=== PATIENT | male | born 1970 | race Caucasian/White ===

== ENCOUNTER 2018-10-08 16:28 | Observation (INO) | payer BC ==
[2018-10-08] MEDS ORDERED: Nitroglycerin 0.4 MG Tab.SL ONE (16:46)
[2018-10-08] MEDS ORDERED: Aspirin 81 MG Tab.Chew ONE (16:46)
[2018-10-08] MEDS ORDERED: Morphine 2 MG/ML Syringe IVPUSH ONE (17:03)
--- NOTE | 2018-10-08 17:03 | EDM.PDOC ---
ED HPI GENERAL MEDICAL PROBLEM - General Chief Complaint: Chest Pain Stated Complaint: chest pain Time Seen by Provider: 10/08/18 16:45 Source of Information: Reports: Patient History Limitations: Reports: No Limitations - History of Present Illness INITIAL COMMENTS - FREE TEXT/NARRATIVE: Patient is a 48-year-old gentleman who came into the ER with chief complaint of chest pain radiating in between the shoulder stating that is about 8 out of 10 started 24 hours ago constant with no changes. Patient is a known smoker but does chew about 10 cans a week. Chest pain protocol was started nitroglycerin 1 given chest pain down to 6 Onset: Gradual Duration: Hour(s): (24) Location: Reports: Chest Quality: Reports: Pressure Severity: Severe Improves with: Reports: Medication (Nitroglycerin brought it from a 8 to a 6 was unable to obtain a second dose secondary to hypotension we went ahead and gave him some morphine and that brought in from 6-4), Other (Patient chest pain was 8 out of 10 given Nitrol 1 brought the chest pain down to a 6 but also brought down the blood pressure so a second nitroglycerin was not given we went ahead and gave morphine 1 mg and that brought the pain from 6to a4 pain more tolerable.) Associated Symptoms: Reports: Diaphoresis (Secondary to hypotension) Left Flank Pain Score (Numeric/FACES): 8 Left Chest Pain Score (Numeric/FACES): 1 - Related Data Allergies Allergy/AdvReac Type Severity Reaction Status Date / Time No Known Allergies Allergy Verified 10/08/18 16:35 Home Meds: Home Meds Cefprozil [Cefzil] 500 mg PO BID 10 Days #20 tab 10/10/18 [Rx] Ondansetron [Zofran ODT] 4 mg PO Q6H PRN 5 Days #20 tab.dis 10/10/18 [Rx] Pantoprazole Sodium [Protonix] 40 mg PO DAILY 30 Days #30 suspdr.pkt 10/10/18 [ Rx] ED ROS GENERAL - Review of Systems Review Of Systems: See Below Constitutional: Reports: No Symptoms HEENT: Reports: No Symptoms Respiratory: Reports: No Symptoms Cardiovascular: Reports: Chest Pain Endocrine: Reports: No Symptoms GI/Abdominal: Reports: No Symptoms : Reports: No Symptoms Musculoskeletal: Reports: No Symptoms Skin: Reports: No Symptoms Neurological: Reports: No Symptoms Psychiatric: Reports: No Symptoms, Anxiety Hematologic/Lymphatic: Reports: No Symptoms Immunologic: Reports: No Symptoms ED EXAM, GENERAL - Physical Exam Exam: See Below Exam Limited By: No Limitations General Appearance: Alert, WD/WN, No Apparent Distress, Obese Eye Exam: Bilateral Eye: EOMI, PERRL Ears: Normal External Exam, Normal Canal, Hearing Grossly Normal, Normal TMs Nose: Normal Inspection, Normal Mucosa, No Blood Throat/Mouth: Normal Inspection, Normal Lips, Normal Teeth, Normal Gums, Normal Oropharynx, Normal Voice, No Airway Compromise Head: Atraumatic, Normocephalic Neck: Normal Inspection, Supple, Non-Tender, Full Range of Motion Respiratory/Chest: Decreased Breath Sounds Cardiovascular: Normal Peripheral Pulses, Regular Rate, Rhythm, No Edema, No Gallop, No JVD, No Murmur, No Rub GI/Abdominal: Normal Bowel Sounds, Soft, Non-Tender, No Organomegaly, No Distention, No Abnormal Bruit, No Mass (Male) Exam: Deferred Rectal (Males) Exam: Deferred Back Exam: Normal Inspection, Full Range of Motion, NT Extremities: Normal Inspection, Normal Range of Motion, Non-Tender, Normal Capillary Refill, No Pedal Edema Neurological: Alert, Oriented, CN II-XII Intact, Normal Cognition, Normal Gait, Normal Reflexes, No Motor/Sensory Deficits Psychiatric: Anxious Skin Exam: Warm, Dry, Intact, Normal Color, No Rash Lymphatic: No Adenopathy Course - Vital Signs Last Recorded V/S: Last Vital Signs Temp 98.3 F 10/10/18 08:00 Pulse 74 10/10/18 08:00 Resp 18 10/10/18 08:00 BP 126/60 10/10/18 08:00 Pulse Ox 98 10/10/18 08:00 - Orders/Labs/Meds Orders: Medication Orders Enoxaparin Sodium (Lovenox) 40 mg SUBCUT Q12H [facility] Last Admin: 10/10/18 07:24 Dose: 40 mg Admin: 10/09/18 19:58 Dose: 40 mg Admin: 10/09/18 09:05 Dose: 40 mg Admin: 10/08/18 20:32 Dose: 40 mg Levofloxacin/Dextrose 750 mg/ (Premix) 150 mls @ 100 mls/hr IV Q24H [facility] Last Admin: 10/09/18 19:54 Dose: 100 mls/hr Infusion: 10/08/18 22:02 Dose: 100 mls/hr Admin: 10/08/18 20:32 Dose: 100 mls/hr Sodium Chloride (Normal Saline) 1,000 mls @ 100 mls/hr IV ASDIRECTED [facility] Last Admin: 10/10/18 03:42 Dose: 100 mls/hr Infusion: 10/10/18 03:21 Dose: 100 mls/hr Admin: 10/09/18 17:21 Dose: 100 mls/hr Infusion: 10/09/18 14:50 Dose: 100 mls/hr Admin: 10/09/18 04:50 Dose: 100 mls/hr Infusion: 10/09/18 04:50 Dose: 100 mls/hr Admin: 10/09/18 00:34 Dose: 100 mls/hr Ketorolac Tromethamine (Toradol) 30 mg IVPUSH Q6H PRN PRN Reason: Pain Stop: 10/14/18 19:10 Last Admin: 10/10/18 02:16 Dose: 30 mg Admin: 10/09/18 19:54 Dose: 30 mg Magnesium Oxide (Magnesium Oxide) 800 mg PO DAILY [facility] Last Admin: 10/10/18 07:24 Dose: 800 mg Morphine Sulfate (Morphine) 4 mg IVPUSH Q2H PRN PRN Reason: Pain (severe 7-10) Last Admin: 10/09/18 18:09 Dose: 4 mg Admin: 10/09/18 15:51 Dose: 4 mg Ondansetron HCl (Zofran) 4 mg IVPUSH Q6H PRN PRN Reason: Nausea/Vomiting Last Admin: 10/09/18 12:59 Dose: 4 mg Pantoprazole Sodium (Protonix Iv) 40 mg IVPUSH DAILY [facility] Last Admin: 10/10/18 07:24 Dose: 40 mg Admin: 10/09/18 13:03 Dose: 40 mg Sodium Chloride (Saline Flush) 10 ml FLUSH ASDIRECTED PRN PRN Reason: Keep Vein Open Last Admin: 10/10/18 02:17 Dose: 10 ml Admin: 10/09/18 19:55 Dose: 10 ml Admin: 10/09/18 18:10 Dose: 10 ml Admin: 10/09/18 09:09 Dose: 10 ml Admin: 10/08/18 17:04 Dose: 10 ml Tramadol HCl (Ultram) 50 mg PO Q6H PRN PRN Reason: Pain Last Admin: 10/10/18 02:17 Dose: 50 mg Admin: 10/09/18 19:58 Dose: 50 mg Labs: Laboratory Tests 10/08/18 10/08/18 10/08/18 Range/Units 16:37 16:37 16:38 WBC 11.4 H (4.0-10.2) K/uL RBC 5.14 (4.33-5.41) M/uL Hgb 16.0 (13.1-16.8) g/dL Hct 46.7 (39.0-49.0) % MCV 90.9 (84.0-98.0) fL MCH 31.1 (28.2-33.3) pg MCHC 34.3 (31.7-36.0) g/dL RDW 13.3 (11.2-14.1) % Plt Count 275 (150-350) K/uL MPV 9.80 (7.00-11.50) fL PT 10.5 (9.5-12.0) SEC INR 1.0 APTT 30.0 (21.0-31.3) SEC D-Dimer, Quantitative (0-400) ng/mL Sodium 138 (136-145) mmol/L Potassium 3.8 (3.5-5.1) mmol/L Chloride 98 (98-107) mmol/L Carbon Dioxide 25.7 (21.0-32.0) mmol/L BUN 9 (7-18) mg/dL Creatinine 0.86 (0.51-1.17) mg/dL Est Cr Clr Drug Dosing 89.87 mL/min Estimated GFR (MDRD) > 60 mL/min Glucose 114 H (74-106) mg/dL Lactic Acid (0.4-2.0) mmol/L Calcium 9.0 (8.5-10.1) mg/dL Magnesium 1.7 L (1.8-2.4) mg/dL Total Bilirubin 1.0 (0.2-1.0) mg/dL AST 23 (15-37) U/L ALT 38 (12-78) U/L Alkaline Phosphatase 88 (46-116) IU/L Creatine Kinase 146 (26-308) U/L Creatine Kinase Index 1.0 (0.0-2.5) % CK-MB (CK-2) 1.50 (0.00-3.60) ng/mL Troponin I 0.000 (0.000-0.056) ng/mL NT-Pro-B Natriuret Pep 65 (0-125) pg/mL Total Protein 8.4 H (6.4-8.2) g/dL Albumin 4.5 (3.4-5.0) g/dL TSH, Ultra Sensitive 0.639 (0.358-3.740) mIU/mL 10/08/18 10/08/18 Range/Units 16:38 16:38 WBC (4.0-10.2) K/uL RBC (4.33-5.41) M/uL Hgb (13.1-16.8) g/dL Hct (39.0-49.0) % MCV (84.0-98.0) fL MCH (28.2-33.3) pg MCHC (31.7-36.0) g/dL RDW (11.2-14.1) % Plt Count (150-350) K/uL MPV (7.00-11.50) fL PT (9.5-12.0) SEC INR APTT (21.0-31.3) SEC D-Dimer, Quantitative 200 (0-400) ng/mL Sodium (136-145) mmol/L Potassium (3.5-5.1) mmol/L Chloride (98-107) mmol/L Carbon Dioxide (21.0-32.0) mmol/L BUN (7-18) mg/dL Creatinine (0.51-1.17) mg/dL Est Cr Clr Drug Dosing mL/min Estimated GFR (MDRD) mL/min Glucose (74-106) mg/dL Lactic Acid 2.9 H (0.4-2.0) mmol/L Calcium (8.5-10.1) mg/dL Magnesium (1.8-2.4) mg/dL Total Bilirubin (0.2-1.0) mg/dL AST (15-37) U/L ALT (12-78) U/L Alkaline Phosphatase (46-116) IU/L Creatine Kinase (26-308) U/L Creatine Kinase Index (0.0-2.5) % CK-MB (CK-2) (0.00-3.60) ng/mL Troponin I (0.000-0.056) ng/mL NT-Pro-B Natriuret Pep (0-125) pg/mL Total Protein (6.4-8.2) g/dL Albumin (3.4-5.0) g/dL TSH, Ultra Sensitive (0.358-3.740) mIU/mL Meds: Medications Generic Name Dose Route Start Last Admin Trade Name Freq PRN Reason Stop Dose Admin Enoxaparin Sodium 40 mg 10/08/18 20:00 10/10/18 07:24 Lovenox SUBCUT 40 mg Q12H [facility] Administration Levofloxacin/Dextrose 750 mg/ 150 mls @ 100 mls/hr 10/08/18 20:30 10/09/18 19 :54 Premix IV 100 mls/hr Q24H [facility] Administration Sodium Chloride 1,000 mls @ 100 mls/hr 10/08/18 19:00 10/10/18 03:42 Normal Saline IV 100 mls/hr ASDIRECTED [facility] Administration Ketorolac Tromethamine 30 mg 10/09/18 19:10 10/10/18 02:16 Toradol IVPUSH 10/14/18 19:10 30 mg Q6H PRN Administration Pain Magnesium Oxide 800 mg 10/10/18 08:00 10/10/18 07:24 Magnesium Oxide PO 800 mg DAILY [facility] Administration Morphine Sulfate 4 mg 10/09/18 15:45 10/09/18 18:09 Morphine IVPUSH 4 mg Q2H PRN Administration Pain (severe 7-10) Ondansetron HCl 4 mg 10/09/18 12:30 10/09/18 12:59 Zofran IVPUSH 4 mg Q6H PRN Administration Nausea/Vomiting Pantoprazole Sodium 40 mg 10/09/18 12:30 10/10/18 07:24 Protonix Iv IVPUSH 40 mg DAILY [facility] Administration Sodium Chloride 10 ml 10/08/18 16:37 10/10/18 02:17 Saline Flush FLUSH 10 ml ASDIRECTED PRN Administration Keep Vein Open Tramadol HCl 50 mg 10/09/18 19:11 10/10/18 02:17 Ultram PO 50 mg Q6H PRN Administration Pain Discontinued Medications Generic Name Dose Route Start Last Admin Trade Name Freq PRN Reason Stop Dose Admin Aspirin Confirm 10/08/18 16:46 10/08/18 17:01 Aspirin Administered 10/08/18 16:47 324 mg Dose Administration 324 mg .ROUTE .STK-MED ONE Fentanyl 100 mcg 10/09/18 12:25 10/09/18 13:10 Sublimaze IVPUSH 10/09/18 12:26 100 mcg ONETIME ONE Administration Sodium Chloride 1,000 mls @ 250 mls/hr 10/08/18 17:15 10/08/18 17:07 Normal Saline IV 250 mls/hr ASDIRECTED [facility] Administration Influenza Virus Vaccine 60 mcg 10/08/18 17:45 10/09/18 09:46 Fluzone Quad [id number] Syringe IM 10/08/18 17:46 Not Given .ONCE ONE Iopamidol 100 ml 10/09/18 14:00 10/09/18 15:12 Isovue-300 (61%) IVPUSH 10/09/18 14:01 Not Given ONETIME ONE Magnesium Sulfate/Dextrose 1 gm 10/09/18 16:00 10/09/18 15:25 Magnesium 1 Gm In D5w 100 Ml IV 10/09/18 16:01 1 gm ONETIME ONE Administration Morphine Sulfate 1 mg 10/08/18 17:03 10/08/18 17:05 Morphine IVPUSH 10/08/18 17:04 1 mg ONETIME ONE Administration Morphine Sulfate Confirm 10/08/18 17:04 10/08/18 17:07 Morphine Administered 10/08/18 17:05 Not Given Dose 2 mg .ROUTE .STK-MED ONE Morphine Sulfate 2 mg 10/08/18 20:17 10/09/18 09:07 Morphine IVPUSH 2 mg Q4H PRN Administration Chest Pain Morphine Sulfate 2 mg 10/09/18 12:30 Morphine IVPUSH Q2H PRN Chest Pain Nitroglycerin Confirm 10/08/18 16:46 10/08/18 17:01 Nitrostat Administered 10/08/18 16:47 0.4 mg Dose Administration 0.4 mg .ROUTE .STK-MED ONE Sucralfate 1 gm 10/08/18 21:23 10/08/18 21:31 Carafate PO 10/08/18 21:24 1 gm ONETIME ONE Administration Departure - Departure Time of Disposition: 17:30 Disposition: Refer to Observation Clinical Impression: Chest pain - Problem List & Annotations (1) Pneumonia SNOMED Code(s): 483606066 Code(s): J18.9 - PNEUMONIA, UNSPECIFIED ORGANISM Status: Acute Priority: High Current Visit: Yes Annotation/Comment:: Repeat chest x-ray check CBC. Qualifiers: Pneumonia type: due to unspecified organism (2) Non-cardiac chest pain SNOMED Code(s): 720265476 Code(s): R07.89 - OTHER CHEST PAIN Status: Acute Priority: High Current Visit: Yes Annotation/Comment:: Pain control much better with Toradol (3) Hypothyroid SNOMED Code(s): 27453642 Code(s): E03.9 - HYPOTHYROIDISM, UNSPECIFIED Status: Acute Current Visit : Yes Annotation/Comment:: TSH at 0.639 will check T4 Qualifiers: Hypothyroidism type: unspecified Qualified Code(s): E03.9 - Hypothyroidism , unspecified - Problem List Review Problem List Initiated/Reviewed/Updated: Yes - Assessment/Plan Admission H&P: Please use this note as an admission H&P Assessment:: Patient will be admitted to rule out OK start antibiotics and check thyroids Plan: Patient stable for observation status
[2018-10-08] MEDS ORDERED: Morphine 2 MG/ML Syringe ONE (17:04)
[2018-10-08] MEDS: Sodium Chloride 0.9% 10 ML Syringe FLUSH PRN (17:04)
[2018-10-08 17:06] LABS: CHLORIDE,CL 98 mmol/L (98-107); SODIUM,NA 138 mmol/L (136-145)
[2018-10-08] MEDS ORDERED: Sodium Chloride 0.9% 1,000 ML IV SCH (17:15)
[2018-10-08] MEDS: Morphine 2 MG/ML Syringe IVPUSH PRN (20:29)
[2018-10-08] MEDS: Levofloxacin/Dextrose 5%-Water 750 MG in Premix Bag 1 BAG IV SCH (20:32)
[2018-10-08] MEDS: Enoxaparin 40 MG/0.4 ML Syringe SUBCUT SCH (20:32)
[2018-10-08] MEDS ORDERED: Sucralfate Suspension 1 GM/10 ML Cup PO ONE (21:23)
[2018-10-09] MEDS: Morphine 2 MG/ML Syringe IVPUSH PRN ×5 (00:31→18:09)
[2018-10-09] MEDS: Sodium Chloride 0.9% 1,000 ML IV SCH ×3 (00:34→17:21)
[2018-10-09 07:27] LABS: CHLORIDE,CL 102 mmol/L (98-107); SODIUM,NA 138 mmol/L (136-145)
[2018-10-09] MEDS: Enoxaparin 40 MG/0.4 ML Syringe SUBCUT SCH ×2 (09:05→19:58)
[2018-10-09] MEDS: Sodium Chloride 0.9% 10 ML Syringe FLUSH PRN ×3 (09:09→19:55)
[2018-10-09] MEDS ORDERED: fentaNYL 100 MCG/2 ML SDV IVPUSH ONE (12:25)
[2018-10-09] MEDS ORDERED: Ondansetron 4 MG/2 ML SDV IVPUSH PRN (12:30)
[2018-10-09] MEDS ORDERED: Morphine 2 MG/ML Syringe IVPUSH PRN (12:30)
--- NOTE | 2018-10-09 12:37 | PCM.PN ---
- General Info Date of Service: 10/09/18 Admission Dx/Problem (Free Text): History of left chest/upper abdominal pain. Radiates around left side and to left mid back/shoulder blade area. Noted to have left lower lung infiltrate during ER evaluation. Admitted to observation for serial troponins/telemetry for cardiac rule out in addition to having antibiotics initiated to treat suspected pneumonia. Subjective Update: Patient is not feeling any better. Uncomfortable all night, unable to sleep. MS Q4hr helped but did not completely alleviate pain. Pain is worse with movement, laying down flat, taking a deep breath, as well as when he eats/ drinks. Patient says that he feels like he needs to burp/abdomen feels full. Has history of kidney stone in past. Denies history of GERD/heartburn/GI pathology. Has not had any fevers/chills. Unable to eat or drink much over the last few days. Has not had much PO intake since admission. Functional Status: Reports: Ambulating, Urinating. Denies: New Symptoms - Review of Systems General: Reports: Appetite (poor). Denies: Fever, Weakness, Fatigue, Chills, Night Sweats HEENT: Reports: No Symptoms Pulmonary: Reports: Pleuritic Chest Pain. Denies: Cough, Sputum, Hemoptysis, Wheezing Cardiovascular: Reports: Chest Pain. Denies: Palpitations, Dyspnea on Exertion , Orthopnea, Edema, Lightheadedness Gastrointestinal: Reports: Abdominal Pain (left upper quadrant), Decreased Appetite, Nausea. Denies: Constipation, Diarrhea, Difficulty Swallowing, Flatus , Hematochezia, Vomiting Genitourinary: Reports: No Symptoms Musculoskeletal: Reports: Back Pain (pain at times radiates towards shoulder blade on left, left mid back.) Skin: Reports: No Symptoms Neurological: Reports: No Symptoms Psychiatric: Reports: No Symptoms - Patient Data Vitals - Most Recent: Last Vital Signs Temp 36.6 C 10/09/18 11:21 Pulse 78 10/09/18 11:21 Resp 17 10/09/18 11:21 BP 130/79 10/09/18 11:21 Pulse Ox 98 10/09/18 11:21 Weight - Most Recent: 106.623 kg I&O - Last 24 Hours: Intake & Output 10/08/18 10/09/18 10/09/18 22:59 06:59 14:59 Intake Total 250 1666 Balance 250 1666 Lab Results Last 24 Hours: Laboratory Results - last 24 hr 10/08/18 10/08/18 10/08/18 Range/Units 16:37 16:37 16:38 WBC 11.4 H (4.0-10.2) K/uL RBC 5.14 (4.33-5.41) M/uL Hgb 16.0 (13.1-16.8) g/dL Hct 46.7 (39.0-49.0) % MCV 90.9 (84.0-98.0) fL MCH 31.1 (28.2-33.3) pg MCHC 34.3 (31.7-36.0) g/dL RDW 13.3 (11.2-14.1) % Plt Count 275 (150-350) K/uL MPV 9.80 (7.00-11.50) fL Neut % (Auto) (45.0-80.0) % Lymph % (Auto) (10.0-50.0) % [place] % (Auto) (2.0-14.0) % Eos % (Auto) (0.0-5.0) % Baso % (Auto) (0.0-2.0) % Neut # (Auto) (1.40-7.00) K/uL Lymph # (Auto) (0.50-3.50) K/uL [place] # (Auto) (0.00-1.00) K/uL Eos # (Auto) (0.00-0.50) K/uL Baso # (Auto) (0.00-0.20) K/uL PT 10.5 (9.5-12.0) SEC INR 1.0 APTT 30.0 (21.0-31.3) SEC D-Dimer, Quantitative (0-400) ng/mL Sodium 138 (136-145) mmol/L Potassium 3.8 (3.5-5.1) mmol/L Chloride 98 (98-107) mmol/L Carbon Dioxide 25.7 (21.0-32.0) mmol/L BUN 9 (7-18) mg/dL Creatinine 0.86 (0.51-1.17) mg/dL Est Cr Clr Drug Dosing 89.87 mL/min Estimated GFR (MDRD) > 60 mL/min Glucose 114 H (74-106) mg/dL Lactic Acid (0.4-2.0) mmol/L Calcium 9.0 (8.5-10.1) mg/dL Magnesium 1.7 L (1.8-2.4) mg/dL Total Bilirubin 1.0 (0.2-1.0) mg/dL AST 23 (15-37) U/L ALT 38 (12-78) U/L Alkaline Phosphatase 88 (46-116) IU/L Creatine Kinase 146 (26-308) U/L Creatine Kinase Index 1.0 (0.0-2.5) % CK-MB (CK-2) 1.50 (0.00-3.60) ng/mL Troponin I 0.000 (0.000-0.056) ng/mL NT-Pro-B Natriuret Pep 65 (0-125) pg/mL Total Protein 8.4 H (6.4-8.2) g/dL Albumin 4.5 (3.4-5.0) g/dL TSH, Ultra Sensitive 0.639 (0.358-3.740) mIU/mL 10/08/18 10/08/18 10/08/18 Range/Units 16:38 16:38 22:35 WBC (4.0-10.2) K/uL RBC (4.33-5.41) M/uL Hgb (13.1-16.8) g/dL Hct (39.0-49.0) % MCV (84.0-98.0) fL MCH (28.2-33.3) pg MCHC (31.7-36.0) g/dL RDW (11.2-14.1) % Plt Count (150-350) K/uL MPV (7.00-11.50) fL Neut % (Auto) (45.0-80.0) % Lymph % (Auto) (10.0-50.0) % [place] % (Auto) (2.0-14.0) % Eos % (Auto) (0.0-5.0) % Baso % (Auto) (0.0-2.0) % Neut # (Auto) (1.40-7.00) K/uL Lymph # (Auto) (0.50-3.50) K/uL [place] # (Auto) (0.00-1.00) K/uL Eos # (Auto) (0.00-0.50) K/uL Baso # (Auto) (0.00-0.20) K/uL PT (9.5-12.0) SEC INR APTT (21.0-31.3) SEC D-Dimer, Quantitative 200 (0-400) ng/mL Sodium (136-145) mmol/L Potassium (3.5-5.1) mmol/L Chloride (98-107) mmol/L Carbon Dioxide (21.0-32.0) mmol/L BUN (7-18) mg/dL Creatinine (0.51-1.17) mg/dL Est Cr Clr Drug Dosing mL/min Estimated GFR (MDRD) mL/min Glucose (74-106) mg/dL Lactic Acid 2.9 H (0.4-2.0) mmol/L Calcium (8.5-10.1) mg/dL Magnesium (1.8-2.4) mg/dL Total Bilirubin (0.2-1.0) mg/dL AST (15-37) U/L ALT (12-78) U/L Alkaline Phosphatase (46-116) IU/L Creatine Kinase (26-308) U/L Creatine Kinase Index (0.0-2.5) % CK-MB (CK-2) (0.00-3.60) ng/mL Troponin I 0.000 (0.000-0.056) ng/mL NT-Pro-B Natriuret Pep (0-125) pg/mL Total Protein (6.4-8.2) g/dL Albumin (3.4-5.0) g/dL TSH, Ultra Sensitive (0.358-3.740) mIU/mL 10/09/18 10/09/18 10/09/18 Range/Units 07:00 07:00 07:00 WBC 10.7 H (4.0-10.2) K/uL RBC 4.47 (4.33-5.41) M/uL Hgb 14.0 D (13.1-16.8) g/dL Hct 41.5 (39.0-49.0) % MCV 92.8 (84.0-98.0) fL MCH 31.3 (28.2-33.3) pg MCHC 33.7 (31.7-36.0) g/dL RDW 13.3 (11.2-14.1) % Plt Count 232 (150-350) K/uL MPV (7.00-11.50) fL Neut % (Auto) 78.3 (45.0-80.0) % Lymph % (Auto) 9.9 L (10.0-50.0) % [place] % (Auto) 11.3 (2.0-14.0) % Eos % (Auto) 0.3 (0.0-5.0) % Baso % (Auto) 0.2 (0.0-2.0) % Neut # (Auto) 8.41 H (1.40-7.00) K/uL Lymph # (Auto) 1.06 (0.50-3.50) K/uL [place] # (Auto) 1.21 H (0.00-1.00) K/uL Eos # (Auto) 0.03 (0.00-0.50) K/uL Baso # (Auto) 0.02 (0.00-0.20) K/uL PT (9.5-12.0) SEC INR APTT (21.0-31.3) SEC D-Dimer, Quantitative (0-400) ng/mL Sodium 138 (136-145) mmol/L Potassium 4.2 (3.5-5.1) mmol/L Chloride 102 (98-107) mmol/L Carbon Dioxide 25.9 (21.0-32.0) mmol/L BUN 10 (7-18) mg/dL Creatinine 0.92 (0.51-1.17) mg/dL Est Cr Clr Drug Dosing 84.01 mL/min Estimated GFR (MDRD) > 60 mL/min Glucose 117 H (74-106) mg/dL Lactic Acid 1.1 (0.4-2.0) mmol/L Calcium 8.5 (8.5-10.1) mg/dL Magnesium (1.8-2.4) mg/dL Total Bilirubin (0.2-1.0) mg/dL AST (15-37) U/L ALT (12-78) U/L Alkaline Phosphatase (46-116) IU/L Creatine Kinase (26-308) U/L Creatine Kinase Index (0.0-2.5) % CK-MB (CK-2) (0.00-3.60) ng/mL Troponin I 0.000 (0.000-0.056) ng/mL NT-Pro-B Natriuret Pep (0-125) pg/mL Total Protein (6.4-8.2) g/dL Albumin (3.4-5.0) g/dL TSH, Ultra Sensitive (0.358-3.740) mIU/mL Med Orders - Current: Current Medications Enoxaparin Sodium (Lovenox) 40 mg SUBCUT Q12H [facility] Last Admin: 10/09/18 09:05 Dose: 40 mg Fentanyl (Sublimaze) 100 mcg IVPUSH ONETIME ONE Stop: 10/09/18 12:26 Levofloxacin/Dextrose 750 mg/ (Premix) 150 mls @ 100 mls/hr IV Q24H [facility] Last Admin: 10/08/18 20:32 Dose: 100 mls/hr Sodium Chloride (Normal Saline) 1,000 mls @ 100 mls/hr IV ASDIRECTED [facility] Last Admin: 10/09/18 04:50 Dose: 100 mls/hr Morphine Sulfate (Morphine) 2 mg IVPUSH Q2H PRN PRN Reason: Chest Pain Ondansetron HCl (Zofran) 4 mg IVPUSH Q6H PRN PRN Reason: Nausea/Vomiting Pantoprazole Sodium (Protonix Iv) 40 mg IVPUSH DAILY [facility] Sodium Chloride (Saline Flush) 10 ml FLUSH ASDIRECTED PRN PRN Reason: Keep Vein Open Last Admin: 10/09/18 09:09 Dose: 10 ml Discontinued Medications Aspirin (Aspirin) Confirm Administered Dose 324 mg .ROUTE .STK-MED ONE Stop: 10/08/18 16:47 Last Admin: 10/08/18 17:01 Dose: 324 mg Sodium Chloride (Normal Saline) 1,000 mls @ 250 mls/hr IV ASDIRECTED [facility] Last Admin: 10/08/18 17:07 Dose: 250 mls/hr Influenza Virus Vaccine (Fluzone Quad [id number] Syringe) 60 mcg IM .ONCE ONE Stop: 10/08/18 17:46 Last Admin: 10/09/18 09:46 Dose: Not Given Morphine Sulfate (Morphine) 1 mg IVPUSH ONETIME ONE Stop: 10/08/18 17:04 Last Admin: 10/08/18 17:05 Dose: 1 mg Morphine Sulfate (Morphine) Confirm Administered Dose 2 mg .ROUTE .STK-MED ONE Stop: 10/08/18 17:05 Last Admin: 10/08/18 17:07 Dose: Not Given Morphine Sulfate (Morphine) 2 mg IVPUSH Q4H PRN PRN Reason: Chest Pain Last Admin: 10/09/18 09:07 Dose: 2 mg Nitroglycerin (Nitrostat) Confirm Administered Dose 0.4 mg .ROUTE .STK-MED ONE Stop: 10/08/18 16:47 Last Admin: 10/08/18 17:01 Dose: 0.4 mg Sucralfate (Carafate) 1 gm PO ONETIME ONE Stop: 10/08/18 21:24 Last Admin: 10/08/18 21:31 Dose: 1 gm - Exam Quality Assessment: DVT Prophylaxis General: Alert, Oriented, Cooperative, No Acute Distress HEENT: Pupils Equal, Pupils Reactive, EOMI, Mucous Membr. Moist/[place] Neck: Supple Lungs: Clear to Auscultation, Normal Respiratory Effort, Other (unable to take deeper breath, only able to take shallow breath due to pain being triggered with respiratory effort) Cardiovascular: Regular Rate, Regular Rhythm, No Murmurs GI/Abdominal Exam: Normal Bowel Sounds, Guarding (mild generlized guarding of abdomen), Rebound (some rebound noted with deep palpation of left mid abdomen), Tender (diffuse tenderness noted, more so left than right) (Male) Exam: Deferred Back Exam: No: CVA Tenderness (L), CVA Tenderness (R), Muscle Spasm, Paraspinal Tenderness, Vertebral Tenderness Extremities: Normal Inspection, Normal Capillary Refill Peripheral Pulses: 2+: Radial (L), Radial (R) Skin: Warm, Dry Neurological: No New Focal Deficit Psy/Mental Status: Alert, Normal Affect, Normal Mood - Problem List & Annotations (1) Non-cardiac chest pain SNOMED Code(s): 101031926 Code(s): R07.89 - OTHER CHEST PAIN Status: Acute Priority: High Current Visit: Yes Annotation/Comment:: Chest improves with morphine but persists. Will increase MS to Q2 PRN. Fentanyl single dose given prior to CT studies. Consider PO alternatives once CT results available. At this time suspect chest pain is related to infiltrate identified on chest xray in left lower lung. Patient also complaining of left upper abdominal pain during rounding. CT of chest and abdomen are planned. (2) Abdominal pain SNOMED Code(s): 67882543 Code(s): R10.9 - UNSPECIFIED ABDOMINAL PAIN Status: Acute Priority: High Current Visit: Yes Qualifiers: Abdominal location: left upper quadrant Qualified Code(s): R10.12 - Left upper quadrant pain Annotation/Comment:: Generalized abdominal discomfort with mild guarding and some rebound noted with deep palpation on left. Given severity of left lower chest pain and left upper abdominal pain, CT of chest and abdomen have been ordered in attempt to more fully identify etiology of patient's complaints. (3) Pneumonia SNOMED Code(s): 224229516 Code(s): J18.9 - PNEUMONIA, UNSPECIFIED ORGANISM Status: Acute Priority: High Current Visit: Yes Qualifiers: Pneumonia type: due to unspecified organism Annotation/Comment:: Chest x-ray revealed pneumonia left lower bas. Levaquin started yesterday. Lactic acid normalized today. (4) Hypomagnesemia SNOMED Code(s): 368618174 Code(s): E83.42 - HYPOMAGNESEMIA Status: Acute Priority: Medium Current Visit: Yes Annotation/Comment:: IV Mag ordered. Will initiate PO supplementation. (5) Hypothyroid SNOMED Code(s): 56251228 Code(s): E03.9 - HYPOTHYROIDISM, UNSPECIFIED Status: Acute Current Visit : Yes Qualifiers: Hypothyroidism type: unspecified Qualified Code(s): E03.9 - Hypothyroidism , unspecified Annotation/Comment:: PSH at 0.639 will check T4 - Problem List Review Problem List Initiated/Reviewed/Updated: Yes - My Orders Last 24 Hours: My Active Orders 10/09/18 12:24 Ondansetron [Zofran] 4 mg IVPUSH Q6H PRN 10/09/18 12:25 Morphine 2 mg IVPUSH Q2H PRN fentaNYL [Sublimaze] 100 mcg IVPUSH ONETIME ONE 10/09/18 12:26 Abdomen Pelvis w Cont [CT] Routine 10/09/18 12:27 Chest w Cont [CT] Routine 10/09/18 12:30 Pantoprazole [ProTONIX IV] 40 mg IVPUSH DAILY - Assessment Assessment:: as above - Plan Plan:: as above. Anticipate one additional day of observation with possible change to inpatient depending on results of CT studies and patient's response with current treatment regimen.
[2018-10-09] MEDS: Pantoprazole 40 MG Vial IVPUSH SCH (13:03)
[2018-10-09] MEDS ORDERED: Iopamidol 755 MG/ML 50 ML Bottle IVPUSH ONE ×2 (14:00)
[2018-10-09] MEDS ORDERED: Iopamidol 612 MG/ML 100 ML Bottle IVPUSH ONE (14:00)
[2018-10-09] MEDS ORDERED: Iopamidol 612 MG/ML 50 ML SDV IVPUSH ONE (14:00)
--- NOTE | 2018-10-09 19:10 | PCM.SN ---
- Free Text/Narrative Note: Radiology did not note obvious pneumonia on CT. Suspects atelectasis, pleuritis. No other processes noted per preliminary phone reading. Abdominal CT did not show changes suggestive of perforation/kidney stone/active infection or other acute process.
[2018-10-09] MEDS: Levofloxacin/Dextrose 5%-Water 750 MG in Premix Bag 1 BAG IV SCH (19:54)
[2018-10-09] MEDS: Ketorolac 30 MG/ML SDV IVPUSH PRN (19:54)
[2018-10-09] MEDS: traMADol 50 MG Tab PO PRN (19:58)
[2018-10-10] MEDS: Ketorolac 30 MG/ML SDV IVPUSH PRN (02:16)
[2018-10-10] MEDS: traMADol 50 MG Tab PO PRN (02:17)
[2018-10-10] MEDS: Sodium Chloride 0.9% 10 ML Syringe FLUSH PRN (02:17)
[2018-10-10] MEDS: Sodium Chloride 0.9% 1,000 ML IV SCH (03:42)
[2018-10-10] MEDS: Enoxaparin 40 MG/0.4 ML Syringe SUBCUT SCH (07:24)
[2018-10-10] MEDS: Pantoprazole 40 MG Vial IVPUSH SCH (07:24)
[2018-10-10 07:29] LABS: CHLORIDE,CL 102 mmol/L (98-107); SODIUM,NA 139 mmol/L (136-145)
[2018-10-10] MEDS ORDERED: Magnesium Oxide 400 MG Tab PO SCH (08:00)
--- NOTE | 2018-10-10 09:28 | PCM.PN ---
- General Info Date of Service: 10/10/18 Functional Status: Reports: Pain Controlled - Review of Systems General: Reports: No Symptoms HEENT: Reports: No Symptoms Pulmonary: Reports: No Symptoms Cardiovascular: Reports: No Symptoms Gastrointestinal: Reports: Abdominal Pain Genitourinary: Reports: No Symptoms Musculoskeletal: Reports: No Symptoms Skin: Reports: No Symptoms Neurological: Reports: No Symptoms Psychiatric: Reports: No Symptoms - Patient Data Vitals - Most Recent: Last Vital Signs Temp 98.3 F 10/10/18 08:00 Pulse 74 10/10/18 08:00 Resp 18 10/10/18 08:00 BP 126/60 10/10/18 08:00 Pulse Ox 98 10/10/18 08:00 Weight - Most Recent: 235 lb 1.015 oz I&O - Last 24 Hours: Intake & Output 10/09/18 10/10/18 10/10/18 22:59 06:59 14:59 Intake Total 1486 1750 480 Output Total 650 200 Balance 836 1550 480 Lab Results Last 24 Hours: Laboratory Results - last 24 hr 10/09/18 10/09/18 10/10/18 Range/Units 07:00 15:30 07:00 WBC (4.0-10.2) K/uL RBC (4.33-5.41) M/uL Hgb (13.1-16.8) g/dL Hct (39.0-49.0) % MCV (84.0-98.0) fL MCH (28.2-33.3) pg MCHC (31.7-36.0) g/dL RDW (11.2-14.1) % Plt Count (150-350) K/uL Neut % (Auto) (45.0-80.0) % Lymph % (Auto) (10.0-50.0) % [place] % (Auto) (2.0-14.0) % Eos % (Auto) (0.0-5.0) % Baso % (Auto) (0.0-2.0) % Neut # (Auto) (1.40-7.00) K/uL Lymph # (Auto) (0.50-3.50) K/uL [place] # (Auto) (0.00-1.00) K/uL Eos # (Auto) (0.00-0.50) K/uL Baso # (Auto) (0.00-0.20) K/uL Sodium 139 (136-145) mmol/L Potassium 4.0 (3.5-5.1) mmol/L Chloride 102 (98-107) mmol/L Carbon Dioxide 26.0 (21.0-32.0) mmol/L BUN 12 (7-18) mg/dL Creatinine 0.93 (0.51-1.17) mg/dL Est Cr Clr Drug Dosing 83.66 mL/min Estimated GFR (MDRD) > 60 mL/min Glucose 85 (74-106) mg/dL Lactic Acid (0.4-2.0) mmol/L Calcium 8.0 L (8.5-10.1) mg/dL Magnesium 2.0 (1.8-2.4) mg/dL Amylase 40 (25-115) U/L Lipase 60 L (73-393) U/L Specimen Type Urinblad Urine Color Yellow Urine Appearance Clear Urine pH 5.5 (5.0-9.0) Ur Specific [place] <= 1.005 (1.005-1.030) Urine Protein Negative (NEGATIVE) mg/dL Urine Glucose (UA) Negative (NEGATIVE) mg/dL Urine Ketones Trace H (NEGATIVE) mg/dL Urine Occult Blood Trace-lysed H (NEGATIVE) Urine Nitrite Negative (NEGATIVE) Urine Bilirubin Negative (NEGATIVE) Urine Urobilinogen 0.2 (0.2-1.0) E.U./dL Ur Leukocyte Esterase Negative (NEGATIVE) Urine RBC 0-5 /HPF Urine WBC 0-5 /HPF Ur Epithelial Cells Rare /LPF Urine Bacteria Rare (NONE TO FEW) /HPF 10/10/18 10/10/18 Range/Units 07:00 07:00 WBC 5.9 (4.0-10.2) K/uL RBC 4.05 L (4.33-5.41) M/uL Hgb 12.5 L D (13.1-16.8) g/dL Hct 38.5 L (39.0-49.0) % MCV 95.1 (84.0-98.0) fL MCH 30.9 (28.2-33.3) pg MCHC 32.5 (31.7-36.0) g/dL RDW 13.5 (11.2-14.1) % Plt Count 194 (150-350) K/uL Neut % (Auto) 65.5 (45.0-80.0) % Lymph % (Auto) 19.6 (10.0-50.0) % [place] % (Auto) 13.0 (2.0-14.0) % Eos % (Auto) 1.7 (0.0-5.0) % Baso % (Auto) 0.2 (0.0-2.0) % Neut # (Auto) 3.84 (1.40-7.00) K/uL Lymph # (Auto) 1.15 (0.50-3.50) K/uL [place] # (Auto) 0.76 (0.00-1.00) K/uL Eos # (Auto) 0.10 (0.00-0.50) K/uL Baso # (Auto) 0.01 (0.00-0.20) K/uL Sodium (136-145) mmol/L Potassium (3.5-5.1) mmol/L Chloride (98-107) mmol/L Carbon Dioxide (21.0-32.0) mmol/L BUN (7-18) mg/dL Creatinine (0.51-1.17) mg/dL Est Cr Clr Drug Dosing mL/min Estimated GFR (MDRD) mL/min Glucose (74-106) mg/dL Lactic Acid 1.0 (0.4-2.0) mmol/L Calcium (8.5-10.1) mg/dL Magnesium (1.8-2.4) mg/dL Amylase (25-115) U/L Lipase (73-393) U/L Specimen Type Urine Color Urine Appearance Urine pH (5.0-9.0) Ur Specific [place] (1.005-1.030) Urine Protein (NEGATIVE) mg/dL Urine Glucose (UA) (NEGATIVE) mg/dL Urine Ketones (NEGATIVE) mg/dL Urine Occult Blood (NEGATIVE) Urine Nitrite (NEGATIVE) Urine Bilirubin (NEGATIVE) Urine Urobilinogen (0.2-1.0) E.U./dL Ur Leukocyte Esterase (NEGATIVE) Urine RBC /HPF Urine WBC /HPF Ur Epithelial Cells /LPF Urine Bacteria (NONE TO FEW) /HPF Brayan Results Last 24 Hours: Microbiology 10/08/18 17:22 Aerobic Blood Culture - Preliminary Blood - Venous - Lab Draw NO GROWTH AFTER 1 DAY Anaerobic Blood Culture - Preliminary NO GROWTH AFTER 1 DAY 10/08/18 17:15 Aerobic Blood Culture - Preliminary Blood - Venous NO GROWTH AFTER 1 DAY Anaerobic Blood Culture - Preliminary NO GROWTH AFTER 1 DAY Med Orders - Current: Current Medications Enoxaparin Sodium (Lovenox) 40 mg SUBCUT Q12H [facility] Last Admin: 10/10/18 07:24 Dose: 40 mg Levofloxacin/Dextrose 750 mg/ (Premix) 150 mls @ 100 mls/hr IV Q24H [facility] Last Admin: 10/09/18 19:54 Dose: 100 mls/hr Sodium Chloride (Normal Saline) 1,000 mls @ 100 mls/hr IV ASDIRECTED [facility] Last Admin: 10/10/18 03:42 Dose: 100 mls/hr Ketorolac Tromethamine (Toradol) 30 mg IVPUSH Q6H PRN PRN Reason: Pain Stop: 10/14/18 19:10 Last Admin: 10/10/18 02:16 Dose: 30 mg Magnesium Oxide (Magnesium Oxide) 800 mg PO DAILY [facility] Last Admin: 10/10/18 07:24 Dose: 800 mg Morphine Sulfate (Morphine) 4 mg IVPUSH Q2H PRN PRN Reason: Pain (severe 7-10) Last Admin: 10/09/18 18:09 Dose: 4 mg Ondansetron HCl (Zofran) 4 mg IVPUSH Q6H PRN PRN Reason: Nausea/Vomiting Last Admin: 10/09/18 12:59 Dose: 4 mg Pantoprazole Sodium (Protonix Iv) 40 mg IVPUSH DAILY [facility] Last Admin: 10/10/18 07:24 Dose: 40 mg Sodium Chloride (Saline Flush) 10 ml FLUSH ASDIRECTED PRN PRN Reason: Keep Vein Open Last Admin: 10/10/18 02:17 Dose: 10 ml Tramadol HCl (Ultram) 50 mg PO Q6H PRN PRN Reason: Pain Last Admin: 10/10/18 02:17 Dose: 50 mg Discontinued Medications Aspirin (Aspirin) Confirm Administered Dose 324 mg .ROUTE .STK-MED ONE Stop: 10/08/18 16:47 Last Admin: 10/08/18 17:01 Dose: 324 mg Fentanyl (Sublimaze) 100 mcg IVPUSH ONETIME ONE Stop: 10/09/18 12:26 Last Admin: 10/09/18 13:10 Dose: 100 mcg Sodium Chloride (Normal Saline) 1,000 mls @ 250 mls/hr IV ASDIRECTED [facility] Last Admin: 10/08/18 17:07 Dose: 250 mls/hr Influenza Virus Vaccine (Fluzone Quad 9820-2167 Syringe) 60 mcg IM .ONCE ONE Stop: 10/08/18 17:46 Last Admin: 10/09/18 09:46 Dose: Not Given Iopamidol (Isovue-300 (61%)) 100 ml IVPUSH ONETIME ONE Stop: 10/09/18 14:01 Last Admin: 10/09/18 15:12 Dose: Not Given Magnesium Sulfate/Dextrose (Magnesium 1 Gm In D5w 100 Ml) 1 gm IV ONETIME ONE Stop: 10/09/18 16:01 Last Admin: 10/09/18 15:25 Dose: 1 gm Morphine Sulfate (Morphine) 1 mg IVPUSH ONETIME ONE Stop: 10/08/18 17:04 Last Admin: 10/08/18 17:05 Dose: 1 mg Morphine Sulfate (Morphine) Confirm Administered Dose 2 mg .ROUTE .STK-MED ONE Stop: 10/08/18 17:05 Last Admin: 10/08/18 17:07 Dose: Not Given Morphine Sulfate (Morphine) 2 mg IVPUSH Q4H PRN PRN Reason: Chest Pain Last Admin: 10/09/18 09:07 Dose: 2 mg Morphine Sulfate (Morphine) 2 mg IVPUSH Q2H PRN PRN Reason: Chest Pain Nitroglycerin (Nitrostat) Confirm Administered Dose 0.4 mg .ROUTE .STK-MED ONE Stop: 10/08/18 16:47 Last Admin: 10/08/18 17:01 Dose: 0.4 mg Sucralfate (Carafate) 1 gm PO ONETIME ONE Stop: 10/08/18 21:24 Last Admin: 10/08/18 21:31 Dose: 1 gm - Exam General: Alert, Oriented HEENT: Pupils Equal, Pupils Reactive, EOMI, Mucous Membr. Moist/[place] Neck: Supple Lungs: Clear to Auscultation, Normal Respiratory Effort Cardiovascular: Regular Rate, Regular Rhythm GI/Abdominal Exam: Normal Bowel Sounds, Soft, Non-Tender, No Organomegaly, No Distention, No Abnormal Bruit, No Mass, Pelvis Stable (Male) Exam: Deferred Back Exam: Normal Inspection, Full Range of Motion Extremities: Normal Inspection, Normal Range of Motion, Non-Tender, No Pedal Edema, Normal Capillary Refill Skin: Warm, Dry, Intact Wound/Incisions: Healing Well Neurological: No New Focal Deficit Psy/Mental Status: Alert, Normal Affect, Normal Mood - Problem List & Annotations (1) Pneumonia SNOMED Code(s): 946786592 Code(s): J18.9 - PNEUMONIA, UNSPECIFIED ORGANISM Status: Acute Priority: High Current Visit: Yes Qualifiers: Pneumonia type: due to unspecified organism Annotation/Comment:: Repeat chest x-ray check CBC. (2) Non-cardiac chest pain SNOMED Code(s): 747501674 Code(s): R07.89 - OTHER CHEST PAIN Status: Acute Priority: High Current Visit: Yes Annotation/Comment:: Pain control much better with Toradol (3) Hypothyroid SNOMED Code(s): 81296400 Code(s): E03.9 - HYPOTHYROIDISM, UNSPECIFIED Status: Acute Current Visit : Yes Qualifiers: Hypothyroidism type: unspecified Qualified Code(s): E03.9 - Hypothyroidism , unspecified Annotation/Comment:: PSH at 0.639 will check T4 - Problem List Review Problem List Initiated/Reviewed/Updated: Yes - My Orders Last 24 Hours: My Active Orders 10/10/18 09:21 Chest 2V [CR] Stat 10/10/18 09:30 CBC WITH AUTO DIFF [HEME] AM 10/11/18 05:11 BASIC METABOLIC PANEL,BMP [CHEM] AM - Assessment Assessment:: as above - Plan Plan:: as above. Anticipate one additional day of observation with possible change to inpatient depending on results of CT studies and patient's response with current treatment regimen.
--- NOTE | 2018-10-10 10:43 | PCM.DCSUM1 ---
Discharge Summary - Hospital Course Free Text/Narrative:: Patient admitted with pneumonia and chest pain. NE was ruled out troponins negative x3. Patient doing much better. Will send home today. Diagnosis: Stroke: No - Discharge Data Discharge Date: 10/10/18 Discharge Disposition: Home, Self-Care 01 Condition: Good - Discharge Diagnosis/Problem(s) (1) Pneumonia SNOMED Code(s): 586081317 ICD Code: J18.9 - PNEUMONIA, UNSPECIFIED ORGANISM Status: Acute Priority : High Current Visit: Yes Problem Details: Repeat chest x-ray check CBC. Qualifiers: Pneumonia type: due to unspecified organism (2) Non-cardiac chest pain SNOMED Code(s): 069351169 ICD Code: R07.89 - OTHER CHEST PAIN Status: Acute Priority: High Current Visit: Yes Problem Details: Pain control much better with Toradol (3) Hypothyroid SNOMED Code(s): 82409043 ICD Code: E03.9 - HYPOTHYROIDISM, UNSPECIFIED Status: Acute Current Visit : Yes Problem Details: PSH at 0.639 will check T4 Qualifiers: Hypothyroidism type: unspecified Qualified Code(s): E03.9 - Hypothyroidism , unspecified - Patient Instructions Activity: As Tolerated Driving: May Drive Today Showering/Bathing: May Shower Notify Provider of: Increased Pain - Discharge Plan Prescriptions/Med Rec: Cefprozil [Cefzil] 500 mg PO BID 10 Days #20 tab Ondansetron [Zofran ODT] 4 mg PO Q6H PRN 5 Days #20 tab.dis PRN Reason: Nausea Home Medications: Home Meds Cefprozil [Cefzil] 500 mg PO BID 10 Days #20 tab 10/10/18 [Rx] Ondansetron [Zofran ODT] 4 mg PO Q6H PRN 5 Days #20 tab.dis 10/10/18 [Rx] Pantoprazole Sodium [Protonix] 40 mg PO DAILY 30 Days #30 suspdr.pkt 10/10/18 [ Rx] Oxygen Therapy Mode: Room Air Patient Handouts: Aspirin, ASA chewable tablets, Levofloxacin injection, Enoxaparin injection, Nitroglycerin sublingual tablets, Morphine injection solution, Community-Acquired Pneumonia, Adult, [id number] Forms: ED Department Discharge Referrals: PCP,Unknown [Ordering Only Provider] - - Discharge Summary/Plan Comment DC Time >30 min.: No Discharge Summary/Plan Comment: Patient will be sent home on Levaquin 750 mg daily for 8 days plus Toradol 10 mg every 6 hours for pain #20 tablets - General Info Date of Service: 10/10/18 Functional Status: Reports: Pain Controlled, Tolerating Diet - Review of Systems General: Reports: No Symptoms Pulmonary: Reports: Other (Chest wall pain) Cardiovascular: Reports: No Symptoms Gastrointestinal: Reports: No Symptoms Genitourinary: Reports: No Symptoms Musculoskeletal: Reports: No Symptoms Skin: Reports: No Symptoms Neurological: Reports: No Symptoms Psychiatric: Reports: No Symptoms - Patient Data Vitals - Most Recent: Last Vital Signs Temp 98.3 F 10/10/18 08:00 Pulse 74 10/10/18 08:00 Resp 18 10/10/18 08:00 BP 126/60 10/10/18 08:00 Pulse Ox 98 10/10/18 08:00 Weight - Most Recent: 235 lb 1.015 oz I&O - Last 24 hours: Intake & Output 10/09/18 10/10/18 10/10/18 22:59 06:59 14:59 Intake Total 1486 1750 480 Output Total 650 200 Balance 836 1550 480 Lab Results - Last 24 hrs: Laboratory Results - last 24 hr 10/09/18 10/09/18 10/10/18 Range/Units 07:00 15:30 07:00 WBC (4.0-10.2) K/uL RBC (4.33-5.41) M/uL Hgb (13.1-16.8) g/dL Hct (39.0-49.0) % MCV (84.0-98.0) fL MCH (28.2-33.3) pg MCHC (31.7-36.0) g/dL RDW (11.2-14.1) % Plt Count (150-350) K/uL Neut % (Auto) (45.0-80.0) % Lymph % (Auto) (10.0-50.0) % [place] % (Auto) (2.0-14.0) % Eos % (Auto) (0.0-5.0) % Baso % (Auto) (0.0-2.0) % Neut # (Auto) (1.40-7.00) K/uL Lymph # (Auto) (0.50-3.50) K/uL [place] # (Auto) (0.00-1.00) K/uL Eos # (Auto) (0.00-0.50) K/uL Baso # (Auto) (0.00-0.20) K/uL Sodium 139 (136-145) mmol/L Potassium 4.0 (3.5-5.1) mmol/L Chloride 102 (98-107) mmol/L Carbon Dioxide 26.0 (21.0-32.0) mmol/L BUN 12 (7-18) mg/dL Creatinine 0.93 (0.51-1.17) mg/dL Est Cr Clr Drug Dosing 83.66 mL/min Estimated GFR (MDRD) > 60 mL/min Glucose 85 (74-106) mg/dL Lactic Acid (0.4-2.0) mmol/L Calcium 8.0 L (8.5-10.1) mg/dL Magnesium 2.0 (1.8-2.4) mg/dL Amylase 40 (25-115) U/L Lipase 60 L (73-393) U/L Specimen Type Urinblad Urine Color Yellow Urine Appearance Clear Urine pH 5.5 (5.0-9.0) Ur Specific [place] <= 1.005 (1.005-1.030) Urine Protein Negative (NEGATIVE) mg/dL Urine Glucose (UA) Negative (NEGATIVE) mg/dL Urine Ketones Trace H (NEGATIVE) mg/dL Urine Occult Blood Trace-lysed H (NEGATIVE) Urine Nitrite Negative (NEGATIVE) Urine Bilirubin Negative (NEGATIVE) Urine Urobilinogen 0.2 (0.2-1.0) E.U./dL Ur Leukocyte Esterase Negative (NEGATIVE) Urine RBC 0-5 /HPF Urine WBC 0-5 /HPF Ur Epithelial Cells Rare /LPF Urine Bacteria Rare (NONE TO FEW) /HPF 10/10/18 10/10/18 Range/Units 07:00 07:00 WBC 5.9 (4.0-10.2) K/uL RBC 4.05 L (4.33-5.41) M/uL Hgb 12.5 L D (13.1-16.8) g/dL Hct 38.5 L (39.0-49.0) % MCV 95.1 (84.0-98.0) fL MCH 30.9 (28.2-33.3) pg MCHC 32.5 (31.7-36.0) g/dL RDW 13.5 (11.2-14.1) % Plt Count 194 (150-350) K/uL Neut % (Auto) 65.5 (45.0-80.0) % Lymph % (Auto) 19.6 (10.0-50.0) % [place] % (Auto) 13.0 (2.0-14.0) % Eos % (Auto) 1.7 (0.0-5.0) % Baso % (Auto) 0.2 (0.0-2.0) % Neut # (Auto) 3.84 (1.40-7.00) K/uL Lymph # (Auto) 1.15 (0.50-3.50) K/uL [place] # (Auto) 0.76 (0.00-1.00) K/uL Eos # (Auto) 0.10 (0.00-0.50) K/uL Baso # (Auto) 0.01 (0.00-0.20) K/uL Sodium (136-145) mmol/L Potassium (3.5-5.1) mmol/L Chloride (98-107) mmol/L Carbon Dioxide (21.0-32.0) mmol/L BUN (7-18) mg/dL Creatinine (0.51-1.17) mg/dL Est Cr Clr Drug Dosing mL/min Estimated GFR (MDRD) mL/min Glucose (74-106) mg/dL Lactic Acid 1.0 (0.4-2.0) mmol/L Calcium (8.5-10.1) mg/dL Magnesium (1.8-2.4) mg/dL Amylase (25-115) U/L Lipase (73-393) U/L Specimen Type Urine Color Urine Appearance Urine pH (5.0-9.0) Ur Specific [place] (1.005-1.030) Urine Protein (NEGATIVE) mg/dL Urine Glucose (UA) (NEGATIVE) mg/dL Urine Ketones (NEGATIVE) mg/dL Urine Occult Blood (NEGATIVE) Urine Nitrite (NEGATIVE) Urine Bilirubin (NEGATIVE) Urine Urobilinogen (0.2-1.0) E.U./dL Ur Leukocyte Esterase (NEGATIVE) Urine RBC /HPF Urine WBC /HPF Ur Epithelial Cells /LPF Urine Bacteria (NONE TO FEW) /HPF PAM Results - Last 24 hrs: Microbiology 10/08/18 17:22 Aerobic Blood Culture - Preliminary Blood - Venous - Lab Draw NO GROWTH AFTER 1 DAY Anaerobic Blood Culture - Preliminary NO GROWTH AFTER 1 DAY 10/08/18 17:15 Aerobic Blood Culture - Preliminary Blood - Venous NO GROWTH AFTER 1 DAY Anaerobic Blood Culture - Preliminary NO GROWTH AFTER 1 DAY Med Orders - Current: Current Medications Enoxaparin Sodium (Lovenox) 40 mg SUBCUT Q12H [facility] Last Admin: 10/10/18 07:24 Dose: 40 mg Levofloxacin/Dextrose 750 mg/ (Premix) 150 mls @ 100 mls/hr IV Q24H [facility] Last Admin: 10/09/18 19:54 Dose: 100 mls/hr Sodium Chloride (Normal Saline) 1,000 mls @ 100 mls/hr IV ASDIRECTED [facility] Last Admin: 10/10/18 03:42 Dose: 100 mls/hr Ketorolac Tromethamine (Toradol) 30 mg IVPUSH Q6H PRN PRN Reason: Pain Stop: 10/14/18 19:10 Last Admin: 10/10/18 02:16 Dose: 30 mg Magnesium Oxide (Magnesium Oxide) 800 mg PO DAILY [facility] Last Admin: 10/10/18 07:24 Dose: 800 mg Morphine Sulfate (Morphine) 4 mg IVPUSH Q2H PRN PRN Reason: Pain (severe 7-10) Last Admin: 10/09/18 18:09 Dose: 4 mg Ondansetron HCl (Zofran) 4 mg IVPUSH Q6H PRN PRN Reason: Nausea/Vomiting Last Admin: 10/09/18 12:59 Dose: 4 mg Pantoprazole Sodium (Protonix Iv) 40 mg IVPUSH DAILY [facility] Last Admin: 10/10/18 07:24 Dose: 40 mg Sodium Chloride (Saline Flush) 10 ml FLUSH ASDIRECTED PRN PRN Reason: Keep Vein Open Last Admin: 10/10/18 02:17 Dose: 10 ml Tramadol HCl (Ultram) 50 mg PO Q6H PRN PRN Reason: Pain Last Admin: 10/10/18 02:17 Dose: 50 mg Discontinued Medications Aspirin (Aspirin) Confirm Administered Dose 324 mg .ROUTE .STK-MED ONE Stop: 10/08/18 16:47 Last Admin: 10/08/18 17:01 Dose: 324 mg Fentanyl (Sublimaze) 100 mcg IVPUSH ONETIME ONE Stop: 10/09/18 12:26 Last Admin: 10/09/18 13:10 Dose: 100 mcg Sodium Chloride (Normal Saline) 1,000 mls @ 250 mls/hr IV ASDIRECTED [facility] Last Admin: 10/08/18 17:07 Dose: 250 mls/hr Influenza Virus Vaccine (Fluzone Quad 8610-9857 Syringe) 60 mcg IM .ONCE ONE Stop: 10/08/18 17:46 Last Admin: 10/09/18 09:46 Dose: Not Given Iopamidol (Isovue-300 (61%)) 100 ml IVPUSH ONETIME ONE Stop: 10/09/18 14:01 Last Admin: 10/09/18 15:12 Dose: Not Given Magnesium Sulfate/Dextrose (Magnesium 1 Gm In D5w 100 Ml) 1 gm IV ONETIME ONE Stop: 10/09/18 16:01 Last Admin: 10/09/18 15:25 Dose: 1 gm Morphine Sulfate (Morphine) 1 mg IVPUSH ONETIME ONE Stop: 10/08/18 17:04 Last Admin: 10/08/18 17:05 Dose: 1 mg Morphine Sulfate (Morphine) Confirm Administered Dose 2 mg .ROUTE .STK-MED ONE Stop: 10/08/18 17:05 Last Admin: 10/08/18 17:07 Dose: Not Given Morphine Sulfate (Morphine) 2 mg IVPUSH Q4H PRN PRN Reason: Chest Pain Last Admin: 10/09/18 09:07 Dose: 2 mg Morphine Sulfate (Morphine) 2 mg IVPUSH Q2H PRN PRN Reason: Chest Pain Nitroglycerin (Nitrostat) Confirm Administered Dose 0.4 mg .ROUTE .STK-MED ONE Stop: 10/08/18 16:47 Last Admin: 10/08/18 17:01 Dose: 0.4 mg Sucralfate (Carafate) 1 gm PO ONETIME ONE Stop: 10/08/18 21:24 Last Admin: 10/08/18 21:31 Dose: 1 gm - Exam General: Reports: Alert, Oriented HEENT: Reports: Pupils Equal, Pupils Reactive, EOMI, Mucous Membr. Moist/[place] Neck: Reports: Supple Lungs: Reports: Clear to Auscultation, Normal Respiratory Effort Cardiovascular: Reports: Regular Rate, Regular Rhythm GI/Abdominal Exam: Normal Bowel Sounds, Soft, Non-Tender, No Organomegaly, No Distention, No Abnormal Bruit, No Mass, Pelvis Stable (Male) Exam: No Hernia, Normal Inspection, Normal Prostate, Circumcised Rectal (Males) Exam: Normal Exam, Normal Rectal Tone, Prostate Normal Back Exam: Reports: Normal Inspection, Full Range of Motion Extremities: Normal Inspection, Normal Range of Motion, Non-Tender, No Pedal Edema, Normal Capillary Refill Skin: Reports: Warm, Dry, Intact Wound/Incisions: Reports: Healing Well Neurological: Reports: No New Focal Deficit Psy/Mental Status: Reports: Alert, Normal Affect, Normal Mood
== END 2018-10-10 11:30 | disposition home or self-care (01) ==
LOC: LL.ED 16:28 → UNDOADMOB 17:30 → LL.MS 17:30
PROVIDERS: ADMIT Family Medicine; ATTEND Family Medicine
DX: R07.89 Other chest pain (principal); J18.9 Pneumonia, unspecified organism; E03.9 Hypothyroidism, unspecified; E83.42 Hypomagnesemia; Z79.899 Other long term (current) drug therapy
CPT/HCPCS: 36415; 71045; 71046; 71260; 74177; 80048; 80053; 81001; 82150; 82550; 82553; 83605; 83690; 83735; 83880; 84443; 84484; 85025; 85027; 85379; 85610; 85730; 87040; 93005; 96374; 99285; A9270; C9113; J1650; J1885; J1956; J2270; J2405; J3010; J3475; J7030; Q9967